=== PATIENT | female | born 1955 | race Caucasian/White ===

== ENCOUNTER 2017-10-26 20:23 | Emergency (ER) | payer OTHER ==
[~2017-10-26] VITALS: Ht 144.8 cm; Wt 56.2 kg
[2017-10-26 21:19] VITALS: Ht 144.8 cm; Wt 56.2 kg
[2017-10-26 23:28] VITALS: BP 132/68
== END 2017-10-26 23:28 | disposition home or self-care (01) ==
LOC: ED 20:23
DX: S83.91XA Sprain of unspecified site of right knee, initial encounter (principal); Z85.841 Personal history of malignant neoplasm of brain; X58.XXXA Exposure to other specified factors, initial encounter; Y93.89 Activity, other specified; Y92.89 Other specified places as the place of occurrence of the external cause; Y99.8 Other external cause status